=== PATIENT | male | born 1955 | race African-American/Black ===

== ENCOUNTER 2018-10-20 18:36 | Emergency (ER) | payer OTHER ==
[~2018-10-20] VITALS: Ht 185.4 cm; Wt 125.5 kg
[~2018-10-20 18:36] MED LIST: ASPI-556 PO; METF-445 PO
[2018-10-20] MEDS ORDERED: GLIP10 PO (18:46)
[2018-10-20] MEDS ORDERED: INSU200I SQ (18:46)
[2018-10-20 19:14] LABS: BASOPHILS % (AUTO) 1.1 % (0.0-2.0); EOSINOPHILS % (AUTO) 6.2 % (1.0-6.0); HEMATOCRIT 37.4 % (41-53); HEMOGLOBIN 12.3 g/dL (13.5-17.5); MEAN CORPUSCULAR HEMOGLOBIN 27.5 pg (26.0-34.0); MEAN CORPUSCULAR HGB CONC 32.9 G/dL (31.0-37.0); MEAN CORPUSCULAR VOLUME 84 fL (80-100); MONOCYTES # (AUTO) 0.5 K/uL (0.1-1.0); MONOCYTES % (AUTO) 7.4 % (2.0-9.0); NEUTROPHILS # (AUTO) 3.7 K/uL (1.8-7.7); NEUTROPHILS % (AUTO) 55.3 % (40.0-70.0); PLATELET COUNT (AUTO) 213 K/uL (150-450); RED BLOOD CELL COUNT(AUTO) 4.46 MIL/uL (4.50-5.90); RED CELL DISTRIBUTION WIDTH 14.8 % (11.5-14.5)
[2018-10-20 19:23] LABS: ANION GAP 9 mmol/L (8-16); CALCIUM, TOTAL 9.6 mg/dL (8.8-10.5); CARBON DIOXIDE 29 mmol/L (22-29); CHLORIDE 104 mmol/L (98-107); CREATININE 1.25 mg/dL (0.60-1.30); GLOMERULAR FILTR. RATE CALC > 60 mL/min (>60); GLUCOSE,RANDOM 207 mg/dL (70-110); POTASSIUM 4.3 mmol/L (3.5-5.1); SODIUM SERUM 142 mmol/L (136-145); UREA NITROGEN, BLOOD 20 mg/dL (7-18)
[2018-10-20 19:30] LABS: ALANINE AMINOTRANSFERASE 27 U/L (12-78); ALBUMIN 3.7 g/dL (3.4-5.0); ALKALINE PHOSPHATASE 87 U/L (46-116); ASPARTATE AMINOTRANSFERASE 12 U/L (15-37); BILIRUBIN,TOTAL 0.2 mg/dL (0.1-1.0); TOTAL PROTEIN, SERUM 7.4 g/dL (6.4-8.2)
[2018-10-20] MEDS: SODIUM CHLORIDE 0.9% 1,000 ML IV ONE (19:43)
[2018-10-20 20:43] VITALS: BP 118/82
== END 2018-10-20 22:20 | disposition home or self-care (01) ==
LOC: EMS 18:37
DX: I87.2 Venous insufficiency (chronic) (peripheral) (principal); E11.65 Type 2 diabetes mellitus with hyperglycemia; F17.210 Nicotine dependence, cigarettes, uncomplicated; E11.9 Type 2 diabetes mellitus without complications; Z88.0 Allergy status to penicillin; Z79.4 Long term (current) use of insulin
CPT/HCPCS: 36415; 80053; 82962; 85025; 85379; 93971; 96360; 96361; 99284; 99406; J7030

== ENCOUNTER 2020-04-10 14:23 | Emergency (ER) | payer OTHER ==
[~2020-04-10] VITALS: Ht 182.9 cm; Wt 118.2 kg
[~2020-04-10 14:23] MED LIST changes: -ASPI-556 PO; +GLIP10 PO; +INSU200I SQ
[2020-04-10] MEDS ORDERED: ASPI-556 PO (14:30)
[2020-04-10] MEDS ORDERED: ATOR10TA84 PO (14:30)
[2020-04-10] MEDS ORDERED: KETOROLAC TROMETHAMINE 60 MG/2 ML VIAL IM ONE (15:30)
[2020-04-10] MEDS ORDERED: PERTUSS(ACELL),DIPH,TET VAC/PF 0.5 ML VIAL IM ONE (15:30)
[2020-04-10] MEDS ORDERED: BACITRACIN 0.9 GM PACKET OINTMENT TP ONE ×2 (15:30→16:15)
[2020-04-10 17:54] VITALS: BP 113/66
== END 2020-04-10 18:01 | disposition home or self-care (01) ==
LOC: EMS 14:24
DX: S61.217A Laceration without foreign body of left little finger without damage to nail, initial encounter (principal); M25.562 Pain in left knee; E11.9 Type 2 diabetes mellitus without complications; F17.210 Nicotine dependence, cigarettes, uncomplicated; Z79.84 Long term (current) use of oral hypoglycemic drugs; Z79.82 Long term (current) use of aspirin; Z79.4 Long term (current) use of insulin; Z88.0 Allergy status to penicillin; W50.3XXA Accidental bite by another person, initial encounter; Y93.89 Activity, other specified; Y92.89 Other specified places as the place of occurrence of the external cause; Y99.8 Other external cause status
CPT/HCPCS: 73562; 82962; 90471; 90715; 96372; 99284; J1885

== ENCOUNTER 2020-07-20 12:47 | Emergency (ER) | payer OTHER ==
[~2020-07-20] VITALS: Ht 182.9 cm; Wt 122.7 kg
[~2020-07-20 12:47] MED LIST changes: +ASPI-556 PO; +ATOR10TA84 PO
[2020-07-20] MEDS ORDERED: ASPIRIN 81 MG CHEWABLE TABLET PO ONE (14:00)
[2020-07-20 14:15] LABS: BASOPHILS % (AUTO) 0.8 % (0.0-2.0); EOSINOPHILS % (AUTO) 4.6 % (1.0-6.0); HEMATOCRIT 35.9 % (41-53); HEMOGLOBIN 11.7 g/dL (13.5-17.5); LYMPHOCYTES # (AUTO) 1.3 K/uL (1.0-4.8); LYMPHOCYTES % (AUTO) 21.2 % (22.0-44.0); MEAN CORPUSCULAR HEMOGLOBIN 27.4 pg (26.0-34.0); MEAN CORPUSCULAR HGB CONC 32.5 G/dL (31.0-37.0); MEAN CORPUSCULAR VOLUME 84 fL (80-100); MONOCYTES # (AUTO) 0.4 K/uL (0.1-1.0); MONOCYTES % (AUTO) 7.1 % (2.0-9.0); NEUTROPHILS # (AUTO) 4.1 K/uL (1.8-7.7); NEUTROPHILS % (AUTO) 66.3 % (40.0-70.0); PLATELET COUNT (AUTO) 220 K/uL (150-450); RED BLOOD CELL COUNT(AUTO) 4.26 MIL/uL (4.50-5.90); RED CELL DISTRIBUTION WIDTH 13.9 % (11.5-14.5)
[2020-07-20 14:23] LABS: ANION GAP 3 mmol/L (8-16); CALCIUM, TOTAL 9.4 mg/dL (8.8-10.5); CARBON DIOXIDE 28 mmol/L (22-29); CHLORIDE 104 mmol/L (98-107); GLOMERULAR FILTR. RATE CALC > 60 mL/min (>60); GLUCOSE,RANDOM 267 mg/dL (70-110); POTASSIUM 3.8 mmol/L (3.5-5.1); SODIUM SERUM 135 mmol/L (136-145); UREA NITROGEN, BLOOD 12 mg/dL (7-18)
[2020-07-20 14:28] LABS: PROTHROMBIN TIME 10.9 SEC (9.4-11.6)
[2020-07-20 14:34] LABS: B-TYPE NATRIURETIC PEPTIDE 27 pg/mL (0-100)
[2020-07-20 14:48] LABS: ALANINE AMINOTRANSFERASE 21 U/L (12-78); ALBUMIN 3.2 g/dL (3.4-5.0); ALKALINE PHOSPHATASE 73 U/L (46-116); ASPARTATE AMINOTRANSFERASE 10 U/L (15-37); BILIRUBIN,TOTAL 0.3 mg/dL (0.1-1.0); CREATINE KINASE, TOTAL ONLY 136 U/L (39-308); TOTAL PROTEIN, SERUM 6.5 g/dL (6.4-8.2)
[2020-07-20] MEDS ORDERED: CYCLOBENZAPRINE HCL 10 MG TABLET PO ONE (15:00)
[2020-07-20] MEDS ORDERED: SODIUM CHLORIDE 0.9% 1,000 ML IV ONE (15:00)
[2020-07-20] MEDS ORDERED: KETOROLAC TROMETHAMINE 30 MG/ML VIAL IVP ONE (15:00)
[2020-07-20] MEDS ORDERED: KETOROLAC TROMETHAMINE 30 MG/ML VIAL ONE (15:13)
[2020-07-20] MEDS ORDERED: CYCLOBENZAPRINE HCL 10 MG TABLET ONE (15:13)
[2020-07-20 15:38] VITALS: BP 119/59
== END 2020-07-20 15:56 | disposition home or self-care (01) ==
LOC: EMS 12:52
DX: M62.830 Muscle spasm of back (principal); E11.9 Type 2 diabetes mellitus without complications; R79.1 Abnormal coagulation profile; E78.00 Pure hypercholesterolemia, unspecified; Z87.891 Personal history of nicotine dependence
CPT/HCPCS: 36415; 71045; 80053; 82550; 82962; 83880; 84484; 85025; 85610; 85730; 93005; 96361; 96374; 99285; J1885

== ENCOUNTER 2022-04-25 14:21 | Emergency (ER) | payer OTHER ==
[~2022-04-25] VITALS: Ht 185.4 cm; Wt 115.0 kg
[~2022-04-25 14:21] MED LIST changes: -GLIP10 PO; +GLIP10TA10 PO
[2022-04-25] MEDS ORDERED: BACITRACIN 0.9 GM PACKET OINTMENT TP ONE (15:45)
[2022-04-25] MEDS ORDERED: BACI28OI29 TP (15:50)
[2022-04-25 16:03] VITALS: BP 118/72
== END 2022-04-25 16:09 | disposition home or self-care (01) ==
LOC: EMS 14:24
DX: S60.811A Abrasion of right wrist, initial encounter (principal); E11.9 Type 2 diabetes mellitus without complications; E78.00 Pure hypercholesterolemia, unspecified; I10 Essential (primary) hypertension; Z98.890 Other specified postprocedural states; Z88.0 Allergy status to penicillin; X58.XXXA Exposure to other specified factors, initial encounter; Y93.89 Activity, other specified; Y92.89 Other specified places as the place of occurrence of the external cause; Y99.8 Other external cause status
CPT/HCPCS: 82962; 99282

== ENCOUNTER 2023-01-31 14:03 | Emergency (ER) | payer OTHER ==
[~2023-01-31] VITALS: Ht 185.4 cm; Wt 109.1 kg
[~2023-01-31 14:03] MED LIST changes: +ATOR10TA PO; -ATOR10TA84 PO; +BACI28OI9 TP
[2023-01-31] MEDS ORDERED: IBUPROFEN 600 MG TABLET PO ONE (14:45)
[2023-01-31] MEDS ORDERED: CYCLOBENZAPRINE HCL 10 MG TABLET PO ONE (14:45)
[2023-01-31 14:58] LABS: BASOPHILS % (AUTO) 1.2 % (0.0-2.0); EOSINOPHILS % (AUTO) 7.7 % (1.0-6.0); HEMATOCRIT 33.6 % (41-53); HEMOGLOBIN 10.9 g/dL (13.5-17.5); LYMPHOCYTES # (AUTO) 1.3 K/uL (1.0-4.8); LYMPHOCYTES % (AUTO) 18.3 % (22.0-44.0); MEAN CORPUSCULAR HEMOGLOBIN 27.9 pg (26.0-34.0); MEAN CORPUSCULAR HGB CONC 32.6 G/dL (31.0-37.0); MEAN CORPUSCULAR VOLUME 86 fL (80-100); MONOCYTES # (AUTO) 0.6 K/uL (0.1-1.0); MONOCYTES % (AUTO) 8.4 % (2.0-9.0); NEUTROPHILS # (AUTO) 4.7 K/uL (1.8-7.7); NEUTROPHILS % (AUTO) 64.4 % (40.0-70.0); PLATELET COUNT (AUTO) 220 K/uL (150-450); RED BLOOD CELL COUNT(AUTO) 3.92 MIL/uL (4.50-5.90); RED CELL DISTRIBUTION WIDTH 13.6 % (11.5-14.5)
[2023-01-31 15:07] LABS: ANION GAP 7 mmol/L (8-16); CALCIUM, TOTAL 9.8 mg/dL (8.8-10.5); CARBON DIOXIDE 27 mmol/L (22-29); CHLORIDE 104 mmol/L (98-107); CREATININE 1.29 mg/dL (0.60-1.30); GLOMERULAR FILTR. RATE CALC > 60 mL/min (>60); GLUCOSE,RANDOM 73 mg/dL (70-110); SODIUM SERUM 138 mmol/L (136-145); UREA NITROGEN, BLOOD 22 mg/dL (7-18)
[2023-01-31] MEDS ORDERED: CYCL-448 PO (15:30)
[2023-01-31] MEDS ORDERED: IBUP-1492 PO (15:30)
[2023-01-31 15:46] VITALS: BP 106/60
== END 2023-01-31 15:46 | disposition home or self-care (01) ==
LOC: EMS 14:17
DX: R07.89 Other chest pain (principal); E11.9 Type 2 diabetes mellitus without complications; E78.00 Pure hypercholesterolemia, unspecified; I10 Essential (primary) hypertension; Z87.891 Personal history of nicotine dependence; Z98.890 Other specified postprocedural states
CPT/HCPCS: 71045; 80048; 84484; 85025; 93005; 99285; 36415-L1; 36415-TC

== ENCOUNTER 2023-05-04 16:14 | Emergency (ER) | payer OTHER ==
[~2023-05-04] VITALS: Ht 185.4 cm; Wt 108.2 kg
[~2023-05-04 16:14] MED LIST changes: -BACI28OI9 TP; +CYCL-448 PO; +IBUP-1492 PO
[2023-05-04] MEDS ORDERED: ATOR40TA71 PO (17:41)
[2023-05-04] MEDS ORDERED: METF-446 PO (17:41)
[2023-05-04] MEDS ORDERED: GLIM4 PO (17:41)
[2023-05-04] MEDS ORDERED: IBUP-2076 PO (17:41)
[2023-05-04] MEDS ORDERED: LINA5TAB PO (17:41)
[2023-05-04] MEDS ORDERED: TRIA15CR49 TP (17:41)
[2023-05-04] MEDS ORDERED: ASPI-1444 PO (17:42)
[2023-05-04] MEDS ORDERED: ONDANSETRON HCL 4 MG/2 ML VIAL IVP ONE (17:45)
[2023-05-04] MEDS ORDERED: SODIUM CHLORIDE 0.9% 1,000 ML IV ONE (17:45)
[2023-05-04 17:56] LABS: BASOPHILS % (AUTO) 1.1 % (0.0-2.0); EOSINOPHILS % (AUTO) 6.3 % (1.0-6.0); HEMATOCRIT 32.1 % (41-53); HEMOGLOBIN 10.3 g/dL (13.5-17.5); LYMPHOCYTES # (AUTO) 1.4 K/uL (1.0-4.8); LYMPHOCYTES % (AUTO) 17.2 % (22.0-44.0); MEAN CORPUSCULAR HEMOGLOBIN 27.2 pg (26.0-34.0); MEAN CORPUSCULAR VOLUME 85 fL (80-100); MONOCYTES # (AUTO) 0.8 K/uL (0.1-1.0); MONOCYTES % (AUTO) 10.4 % (2.0-9.0); NEUTROPHILS # (AUTO) 5.1 K/uL (1.8-7.7); PLATELET COUNT (AUTO) 263 K/uL (150-450); RED BLOOD CELL COUNT(AUTO) 3.78 MIL/uL (4.50-5.90); RED CELL DISTRIBUTION WIDTH 14.7 % (11.5-14.5)
[2023-05-04 18:04] LABS: APPEARANCE,URINE CLEAR (CLEAR); BILIRUBIN,URINE NEGATIVE (NEGATIVE); GLUCOSE, URINE (UA) NEGATIVE (NEGATIVE); KETONES,URINE NEGATIVE (NEGATIVE); LEUKOCYTE ESTERASE ,URINE NEGATIVE (NEGATIVE); NITRATE,URINE NEGATIVE (NEGATIVE); OCCULT BLOOD,URINE NEGATIVE (NEGATIVE); PROTEIN,URINE 30-70 mg/dL (NEGATIVE); SPECIFIC GRAVITIY, URINE 1.016 (1.003-1.030); UROBILINOGEN,URINE <=1.0 mg/dL (<=1.0)
[2023-05-04 18:05] LABS: ANION GAP 8 mmol/L (8-16); CALCIUM, TOTAL 10.2 mg/dL (8.8-10.5); CARBON DIOXIDE 29 mmol/L (22-29); CHLORIDE 98 mmol/L (98-107); CREATININE 1.06 mg/dL (0.60-1.30); GLOMERULAR FILTR. RATE CALC > 60 mL/min (>60); GLUCOSE,RANDOM 147 mg/dL (70-110); POTASSIUM 4.3 mmol/L (3.5-5.1); SODIUM SERUM 135 mmol/L (136-145)
[2023-05-04 18:10] LABS: ALANINE AMINOTRANSFERASE 22 U/L (12-78); ALKALINE PHOSPHATASE 75 U/L (46-116); ASPARTATE AMINOTRANSFERASE 19 U/L (15-37); BILIRUBIN,TOTAL 0.5 mg/dL (0.1-1.0); LIPASE 38 U/L (73-393); TOTAL PROTEIN, SERUM 7.7 g/dL (6.4-8.2)
[2023-05-04] MEDS ORDERED: BARIUM SULFATE 0.1% SUSPENSION 450 ML BOTTLE PO ONE (19:00)
[2023-05-04] MEDS ORDERED: SODIUM CHLORIDE 0.9% 100 ML ONE (19:53)
[2023-05-04] MEDS ORDERED: IOHEXOL 350 MG/ML 100 ML VIAL ONE (19:53)
[2023-05-04 21:56] VITALS: BP 134/72; PULSE 92; RESP 16; TEMP 99.6
[2023-05-04] MEDS ORDERED: DOCU-385 PO (21:56)
== END 2023-05-04 23:07 | disposition home or self-care (01) ==
LOC: EMS 16:15
DX: R10.9 Unspecified abdominal pain (principal); K59.00 Constipation, unspecified; D13.4 Benign neoplasm of liver; E11.9 Type 2 diabetes mellitus without complications; E78.00 Pure hypercholesterolemia, unspecified; I10 Essential (primary) hypertension; Z87.891 Personal history of nicotine dependence; Z98.890 Other specified postprocedural states; Z88.0 Allergy status to penicillin
CPT/HCPCS: 99285; 74177; 96374; 96361; 80053; 81003; 82962; 83690; 85025; 36415; J2405; Q9967; J7030; J7050

== ENCOUNTER 2023-06-29 09:27 | Emergency (ER) | payer OTHER ==
[~2023-06-29] VITALS: Ht 185.4 cm; Wt 108.2 kg
[~2023-06-29 09:27] MED LIST changes: +ASPI-1444 PO; -ASPI-556 PO; -ATOR10TA PO; +ATOR40TA71 PO; -CYCL-448 PO; +DOCU-385 PO; +GLIM4 PO; -GLIP10TA10 PO; -IBUP-1492 PO; +IBUP-2076 PO; +LINA5TAB PO; -METF-445 PO; +METF-446 PO; +TRIA15CR49 TP
[2023-06-29 09:31] VITALS: TEMP 98.2
[2023-06-29] MEDS ORDERED: IBUPROFEN 600 MG TABLET PO ONE (11:45)
[2023-06-29] MEDS ORDERED: HYDROCODONE/ACETAMINOPHEN 5-325 MG TABLET PO ONE (11:45)
[2023-06-29] MEDS ORDERED: IBUP-1554 PO (12:57)
[2023-06-29] MEDS ORDERED: HYDR-4072 PO (12:57)
[2023-06-29] MEDS ORDERED: BACL10TA PO (12:57)
[2023-06-29 13:04] VITALS: BP 123/67; PULSE 84; RESP 16
== END 2023-06-29 13:20 | disposition home or self-care (01) ==
LOC: EMS 09:35
DX: S53.402A Unspecified sprain of left elbow, initial encounter (principal); S63.522A Sprain of radiocarpal joint of left wrist, initial encounter; S30.0XXA Contusion of lower back and pelvis, initial encounter; M17.0 Bilateral primary osteoarthritis of knee; E11.9 Type 2 diabetes mellitus without complications; E78.00 Pure hypercholesterolemia, unspecified; I10 Essential (primary) hypertension; Z87.891 Personal history of nicotine dependence; Z98.890 Other specified postprocedural states; Z88.0 Allergy status to penicillin; W01.0XXA Fall on same level from slipping, tripping and stumbling without subsequent striking against object, initial encounter; Y93.89 Activity, other specified; Y92.89 Other specified places as the place of occurrence of the external cause; Y99.8 Other external cause status
CPT/HCPCS: 72220; 99284

== ENCOUNTER 2023-07-27 10:57 | Emergency (ER) | payer OTHER ==
[~2023-07-27] VITALS: Ht 185.4 cm; Wt 108.2 kg
[~2023-07-27 10:57] MED LIST changes: +BACL10TA PO; -DOCU-385 PO; +HYDR-4072 PO; +IBUP-1554 PO; -TRIA15CR49 TP
[2023-07-27 11:03] VITALS: TEMP 98.4
[2023-07-27] MEDS ORDERED: TRIA15CR49 TP (12:29)
[2023-07-27] MEDS ORDERED: KETOROLAC TROMETHAMINE 60 MG/2 ML VIAL IM ONE (12:30)
[2023-07-27] MEDS ORDERED: IBUP-1492 PO (13:28)
[2023-07-27] MEDS ORDERED: BACL10TA PO (13:29)
[2023-07-27 13:35] VITALS: BP 121/65; PULSE 75; RESP 16
== END 2023-07-27 13:53 | disposition home or self-care (01) ==
LOC: EMS 11:01
DX: M25.531 Pain in right wrist (principal); M25.521 Pain in right elbow; E11.9 Type 2 diabetes mellitus without complications; E78.00 Pure hypercholesterolemia, unspecified; I10 Essential (primary) hypertension; Z87.891 Personal history of nicotine dependence; Z98.890 Other specified postprocedural states; Z88.0 Allergy status to penicillin
CPT/HCPCS: 99284; 73030; 73080; 73110; 96372; J1885; 82962

== ENCOUNTER 2023-10-12 08:35 | Emergency (ER) | payer OTHER ==
[~2023-10-12] VITALS: Ht 185.4 cm; Wt 108.2 kg
[~2023-10-12 08:35] MED LIST changes: +IBUP-1492 PO; -IBUP-1554 PO; +TRIA15CR49 TP
[2023-10-12 08:56] LABS: COVID AG,FIA SOURCE NASAL SWAB
[2023-10-12 09:15] LABS: SARS-COV2 (COVID) ANTIGEN,FIA Negative (Negative)
[2023-10-12 09:16] LABS: INFLUENZA TYPE A NEGATIVE FOR TYPE A (NEGATIVE); INFLUENZA TYPE B NEGATIVE FOR TYPE B (NEGATIVE)
[2023-10-12] MEDS ORDERED: ALBUTEROL SULFATE 2.5 MG/0.5 ML NEB SOLUTION NEB ONE (10:00)
[2023-10-12] MEDS ORDERED: IPRATROPIUM BROMIDE 0.5 MG/2.5 ML NEB SOLUTION NEB ONE (10:00)
[2023-10-12 10:26] VITALS: PULSE 72; RESP 18; O2SAT 98
[2023-10-12 10:39] VITALS: PULSE 77; RESP 18; O2SAT 100
[2023-10-12] MEDS ORDERED: AZIT250T9 PO (10:48)
[2023-10-12] MEDS ORDERED: ALBU18HF12 IH (10:48)
[2023-10-12] MEDS ORDERED: PRED-554 PO (10:48)
[2023-10-12 11:00] VITALS: BP 132/71; PULSE 72; RESP 16; TEMP 98
== END 2023-10-12 12:05 | disposition home or self-care (01) ==
LOC: EMS 08:58
DX: J40 Bronchitis, not specified as acute or chronic (principal); J98.01 Acute bronchospasm; E11.9 Type 2 diabetes mellitus without complications; E78.00 Pure hypercholesterolemia, unspecified; Z87.891 Personal history of nicotine dependence; Z88.0 Allergy status to penicillin; Z98.890 Other specified postprocedural states; Z20.822 Contact with and (suspected) exposure to COVID-19
CPT/HCPCS: 99284; 71045; 87426; 82962; 87804; 94640; C9803; J7613

== ENCOUNTER 2024-12-25 07:35 | Emergency (ER) | payer OTHER ==
[~2024-12-25] VITALS: Ht 182.9 cm; Wt 109.1 kg
[~2024-12-25 07:35] MED LIST changes: +ALBU18HF12 IH; -BACL10TA PO; +GLIM-8 PO; -GLIM4 PO; +PRED-554 PO
[2024-12-25 07:36] VITALS: BP 123/52; PULSE 105; RESP 20; TEMP 97.9; O2SAT 100
[2024-12-25] MEDS: KETOROLAC TROMETHAMINE 60 MG/2 ML VIAL IM ONE (08:31)
[2024-12-25] MEDS: ACETAMINOPHEN 500 MG TABLET PO ONE (08:31)
[2024-12-25] MEDS: METHOCARBAMOL 500 MG TABLET PO ONE (08:31)
[2024-12-25] MEDS ORDERED: ACET-66 PO (10:26)
[2024-12-25] MEDS ORDERED: IBUP-1554 PO (10:26)
[2024-12-25] MEDS ORDERED: METH-659 PO (10:26)
[2024-12-25] MEDS ORDERED: HYDR-4062 PO (10:27)
== END 2024-12-25 10:40 | disposition home or self-care (01) ==
LOC: EMS 07:35
DX: S46.912A Strain of unspecified muscle, fascia and tendon at shoulder and upper arm level, left arm, initial encounter (principal); E11.9 Type 2 diabetes mellitus without complications; E78.00 Pure hypercholesterolemia, unspecified; Z88.0 Allergy status to penicillin; Z79.1 Long term (current) use of non-steroidal anti-inflammatories (NSAID); Z79.52 Long term (current) use of systemic steroids; Z79.82 Long term (current) use of aspirin; Z79.84 Long term (current) use of oral hypoglycemic drugs; Z79.899 Other long term (current) drug therapy; X58.XXXA Exposure to other specified factors, initial encounter; Y93.89 Activity, other specified; Y92.89 Other specified places as the place of occurrence of the external cause; Y99.8 Other external cause status
CPT/HCPCS: 99283; 29105; 73030; 82962; 96372; J1885; 29240

== ENCOUNTER 2025-03-30 15:41 | Emergency (ER) | payer OTHER ==
[~2025-03-30] VITALS: Ht 183.5 cm; Wt 115.0 kg
[~2025-03-30 15:41] MED LIST changes: +HYDR-4062 PO; +IBUP-1554 PO; +METH-659 PO
[2025-03-30] MEDS ORDERED: HYDR30CR3 TP (15:53)
[2025-03-30 15:55] VITALS: TEMP 97.9
[2025-03-30 16:02] LABS: BASOPHILS % (AUTO) 0.7 % (0.0-2.0); EOSINOPHILS % (AUTO) 4.1 % (1.0-6.0); HEMATOCRIT 37.5 % (41-53); HEMOGLOBIN 12.3 g/dL (13.5-17.5); LYMPHOCYTES # (AUTO) 1.1 K/uL (1.0-4.8); LYMPHOCYTES % (AUTO) 17.1 % (22.0-44.0); MEAN CORPUSCULAR HEMOGLOBIN 27.6 pg (26.0-34.0); MEAN CORPUSCULAR HGB CONC 32.8 G/dL (31.0-37.0); MEAN CORPUSCULAR VOLUME 84 fL (80-100); MONOCYTES # (AUTO) 0.5 K/uL (0.1-1.0); NEUTROPHILS # (AUTO) 4.5 K/uL (1.8-7.7); NEUTROPHILS % (AUTO) 70.1 % (40.0-70.0); PLATELET COUNT (AUTO) 204 K/uL (150-450); RED BLOOD CELL COUNT(AUTO) 4.44 MIL/uL (4.50-5.90); RED CELL DISTRIBUTION WIDTH 15.3 % (11.5-14.5); WHITE BLOOD COUNT (AUTO) 6.5 K/uL (4.5-11.0)
[2025-03-30 16:08] LABS: ANION GAP 7 mmol/L (8-16); CALCIUM, TOTAL 9.7 mg/dL (8.8-10.5); CARBON DIOXIDE 29 mmol/L (22-29); CHLORIDE 105 mmol/L (98-107); CREATININE 1.12 mg/dL (0.60-1.30); GLOMERULAR FILTR. RATE CALC > 60 mL/min (>60); GLUCOSE,RANDOM 118 mg/dL (70-110); POTASSIUM 4.2 mmol/L (3.5-5.1); SODIUM SERUM 141 mmol/L (136-145); UREA NITROGEN, BLOOD 13 mg/dL (7-18)
[2025-03-30 16:18] LABS: TROPONIN I-HIGH SENSITIVITY 8 ng/L (<76)
[2025-03-30] MEDS ORDERED: MECL-226 PO (18:03)
[2025-03-30] MEDS: MECLIZINE HCL 25 MG TABLET PO ONE (18:31)
[2025-03-30 19:02] LABS: APPEARANCE,URINE CLEAR (CLEAR); BILIRUBIN,URINE NEGATIVE (NEGATIVE); COLOR,URINE LIGHT YELLOW (YELLOW); GLUCOSE, URINE (UA) NEGATIVE (NEGATIVE); KETONES,URINE NEGATIVE (NEGATIVE); LEUKOCYTE ESTERASE ,URINE NEGATIVE (NEGATIVE); NITRATE,URINE NEGATIVE (NEGATIVE); OCCULT BLOOD,URINE NEGATIVE (NEGATIVE); PH,URINE 7.5 (5.0-8.0); PROTEIN,URINE 30-70 mg/dL (NEGATIVE); SPECIFIC GRAVITIY, URINE 1.015 (1.003-1.030); UROBILINOGEN,URINE <=1.0 mg/dL (<=1.0)
[2025-03-30 19:10] VITALS: BP 119/74; PULSE 77; RESP 18; O2SAT 99
[2025-04-02] MEDS ORDERED: MECL-226 PO (10:49)
== END 2025-03-30 19:25 | disposition home or self-care (01) ==
LOC: EMS 15:41
DX: R42 Dizziness and giddiness (principal); E11.9 Type 2 diabetes mellitus without complications; E78.00 Pure hypercholesterolemia, unspecified; I10 Essential (primary) hypertension; Z88.0 Allergy status to penicillin; Z79.82 Long term (current) use of aspirin; Z87.891 Personal history of nicotine dependence; Z98.890 Other specified postprocedural states; Z79.899 Other long term (current) drug therapy
CPT/HCPCS: 71045; 80048; 81003; 82962; 83880; 84484; 85025; 93005; 99285; 36415-L1; 36415-TC

== ENCOUNTER 2025-04-15 09:53 | Emergency (ER) | payer OTHER ==
[~2025-04-15] VITALS: Ht 185.4 cm; Wt 109.1 kg
[~2025-04-15 09:53] MED LIST changes: -ALBU18HF12 IH; -HYDR-4062 PO; -HYDR-4072 PO; +HYDR30CR3 TP; -IBUP-1492 PO; -IBUP-1554 PO; -IBUP-2076 PO; +MECL-226 PO; -METH-659 PO; -PRED-554 PO; -TRIA15CR49 TP
[2025-04-15 10:02] VITALS: TEMP 97.9
[2025-04-15 10:15] LABS: GLUCOMETER DEV NAME(LOC) ERT.7; GLUCOSE,POINT OF CARE 250 MG/DL (70-110)
[2025-04-15 10:47] LABS: BASOPHILS % (AUTO) 0.6 % (0.0-2.0); EOSINOPHILS % (AUTO) 8.2 % (1.0-6.0); HEMATOCRIT 34.6 % (41-53); HEMOGLOBIN 11.5 g/dL (13.5-17.5); LYMPHOCYTES # (AUTO) 0.8 K/uL (1.0-4.8); LYMPHOCYTES % (AUTO) 15.2 % (22.0-44.0); MEAN CORPUSCULAR HEMOGLOBIN 28.4 pg (26.0-34.0); MEAN CORPUSCULAR HGB CONC 33.4 G/dL (31.0-37.0); MEAN CORPUSCULAR VOLUME 85 fL (80-100); MONOCYTES # (AUTO) 0.3 K/uL (0.1-1.0); MONOCYTES % (AUTO) 5.5 % (2.0-9.0); NEUTROPHILS # (AUTO) 3.9 K/uL (1.8-7.7); NEUTROPHILS % (AUTO) 70.5 % (40.0-70.0); PLATELET COUNT (AUTO) 189 K/uL (150-450); RED BLOOD CELL COUNT(AUTO) 4.06 MIL/uL (4.50-5.90); RED CELL DISTRIBUTION WIDTH 14.6 % (11.5-14.5); WHITE BLOOD COUNT (AUTO) 5.6 K/uL (4.5-11.0)
[2025-04-15 10:50] LABS: APPEARANCE,URINE CLEAR (CLEAR); BILIRUBIN,URINE NEGATIVE (NEGATIVE); COLOR,URINE LIGHT YELLOW (YELLOW); GLUCOSE, URINE (UA) 70-100 mg/dL (NEGATIVE); KETONES,URINE NEGATIVE (NEGATIVE); LEUKOCYTE ESTERASE ,URINE TRACE (NEGATIVE); NITRATE,URINE NEGATIVE (NEGATIVE); OCCULT BLOOD,URINE NEGATIVE (NEGATIVE); PROTEIN,URINE 30-70 mg/dL (NEGATIVE); SPECIFIC GRAVITIY, URINE 1.013 (1.003-1.030); UROBILINOGEN,URINE <=1.0 mg/dL (<=1.0)
[2025-04-15 10:51] LABS: RBC,URINE 0-2 /HPF (0-2)
[2025-04-15 10:52] LABS: BACTERIA,URINE None Seen /HPF (None Seen); WBC,URINE 0-2 /HPF (0-5)
[2025-04-15 10:56] LABS: ANION GAP 2 mmol/L (8-16); CALCIUM, TOTAL 9.2 mg/dL (8.8-10.5); CARBON DIOXIDE 28 mmol/L (22-29); CHLORIDE 108 mmol/L (98-107); CREATININE 1.17 mg/dL (0.60-1.30); GLOMERULAR FILTR. RATE CALC > 60 mL/min (>60); GLUCOSE,RANDOM 232 mg/dL (70-110); POTASSIUM 4.1 mmol/L (3.5-5.1); SODIUM SERUM 138 mmol/L (136-145); UREA NITROGEN, BLOOD 13 mg/dL (7-18)
[2025-04-15 11:00] LABS: CREATINE KINASE, TOTAL ONLY 197 U/L (39-308)
[2025-04-15 11:02] LABS: B-TYPE NATRIURETIC PEPTIDE 83 pg/mL (0-100)
[2025-04-15 11:04] LABS: TROPONIN I-HIGH SENSITIVITY 7 ng/L (<76)
[2025-04-15 11:41] VITALS: BP 122/74; PULSE 65; RESP 20; O2SAT 100
== END 2025-04-15 11:43 | disposition home or self-care (01) ==
LOC: EMS 09:58
DX: R07.89 Other chest pain (principal); I10 Essential (primary) hypertension; E11.65 Type 2 diabetes mellitus with hyperglycemia; E78.00 Pure hypercholesterolemia, unspecified; Z87.891 Personal history of nicotine dependence; Z98.890 Other specified postprocedural states; Z88.0 Allergy status to penicillin; Z91.040 Latex allergy status; Z79.82 Long term (current) use of aspirin; Z79.899 Other long term (current) drug therapy
CPT/HCPCS: 71045; 80048; 81001; 82550; 82962; 83880; 84484; 85025; 93005; 99285; 36415-L1; 36415-TC